=== PATIENT | male | born 1945 | race Caucasian/White ===

== ENCOUNTER → 2017-07-01 14:53 | Outpatient (CLI) | payer MEDICARE, SELFPAY ==
--- NOTE | 2017-07-01 10:00 | LIP_PTH ---
PATIENT: FELICIANO BAEZ LOC: [facility] U#:[id number] AGE/SX: 79/M ROOM: RE07/01/[address]: Dr. Zane Plascencia MD : [id number] BED: DIS: SPEC #: [id number] RECD: 07/01/17 12:04 STATUS: SHANTEL SAUNDRA #: [id number] YOLY: 07/01/17 10:[address]: Zane Plascencia DEPT: SURGICAL PATHOLOGY RECD BY: Hallie Zamora Good Tissues: Soft tissues, NOS Procedures: Surgery Specimen Level III HEADER OPERATION: Excision of lipoma of abdomen PRE-OP DIAGNOSIS: Abdominal lipoma TISSUE SUBMITTED: Abdominal lipoma MICROSCOPIC DIAGNOSIS Abdominal lipoma: Pieces of mature adipose tissue, consistent with lipoma. SJ:deann 07/02/17 MICROSCOPIC DESCRIPTION Slides are reviewed. GROSS DESCRIPTION Received in fixative is one container labeled with the patient's name and designated lipoma abdomen. The specimen consists of two pieces of yellow adipose tissue measuring in aggregate 2 x 2 x 1 cm. The larger piece is bisected. The entire specimen is submitted in one cassette. / SJ:deann 07/01/17 TC:1 CPT: [id number]
== END ==
PROVIDERS: Visit Provider Surgery
DX: D17.79 Benign lipomatous neoplasm of other sites (principal)
CPT/HCPCS: 88304

== ENCOUNTER → 2019-02-23 09:48 | Outpatient (CLI) | payer MEDICARE, OTHER, SELFPAY ==
[2017-07-01 09:43] VITALS: BMI 36.2
== END ==
PROVIDERS: Family Provider Family Medicine; PCP Family Medicine; Referring Provider Otolaryngology; Visit Provider Otolaryngology
DX: R05 Cough (principal)
CPT/HCPCS: 87070; 87205

== ENCOUNTER → 2020-01-20 09:40 | Outpatient (CLI) | payer MEDICARE, OTHER, SELFPAY ==
--- NOTE | 2020-01-20 09:43 | US_ITS ---
STUDY: ABDOMINAL ULTRASOUND REASON FOR EXAM: Male, 74 years old. RLQ PAIN AND LUQ PAIN TECHNIQUE: Transabdominal ultrasound was performed with real-time and static wilder scale imaging. TECHNICAL QUALITY: Adequate. COMPARISON: None. FINDINGS: Liver: The liver measures 18.3 cm. There is increased echogenicity consistent with fatty infiltration. The bile ducts are within normal limits. There is hepatic color flow. The direction of portal flow is hepatopetal. 2 cysts are seen in the right lobe of the liver. The larger cyst measures 1.8 cm x 1.9 cm x 1.2 cm. Gallbladder: Normal distended gallbladder. The gallbladder wall measures 2.6 mm. There is a negative sonographic Hager''s sign. There is no pericholecystic fluid. There are no gallstones. Common Bile Duct (C.B.D.): The common bile duct measures 3.5 mm. Pancreas: Normal size of the head, body and tail of the pancreas. There is increased echogenicity of the pancreas. There is no demonstrated pancreatic mass or cyst. Spleen: Normal size of the spleen. The spleen measures 11 cm x 4.7 cm x 5.6 cm. Right Kidney: Normal size of the right kidney. The right kidney measures 12.6 cm x 5.4 cm x 4.8 cm. Normal renal cortex. The right cortex measures 1.6 cm. There is a 2.5 cm x 2 cm x 2.7 cm cyst. There is no right hydronephrosis. Left Kidney: Normal size of the left kidney. The left kidney measures 12.2 cm x 5.5 cm x 4.8 cm. Normal renal cortex. The left cortex measures 1.7 cm. There is no demonstrated renal mass or cyst. There is no left hydronephrosis. Aorta: Unremarkable I.V.C.: The IVC is patent. There is no ascites. US/Abdomen Complete IMPRESSION: Borderline hepatomegaly and diffuse fatty infiltration of the liver. 2 cysts are seen in the right lobe of the liver. Right renal cyst. Electronically Signed: Sulaiman Aguilar, at 11:35 EDT , Service support ,
--- NOTE | 2020-01-20 09:50 | RAD_ITS ---
STUDY: X-RAY - LUMBAR SPINE REASON FOR EXAM: Male, 74 years old. Low Back Pain TECHNIQUE: 5 view(s) of the lumbar spine were obtained including oblique views. COMPARISON: None FINDINGS: There is an exaggerated lumbar lordosis. There is no substantial scoliosis. There is a normal alignment of the vertebrae. There is multilevel endplate spondylosis of the lumbar vertebrae. There is multi-level degenerative disc disease with multi-level disc space narrowing. The soft tissue structures are unremarkable. RAD/L/S Spine Min 4 Views IMPRESSION: Degenerative changes of the spine, as detailed above. Electronically Signed: Sulaiman Aguilar, at 13:07 EDT , Service support ,
== END ==
PROVIDERS: PCP Family Medicine; Referring Provider Family Medicine; Visit Provider Family Medicine
DX: R10.12 Left upper quadrant pain (principal); M54.5 Low back pain
CPT/HCPCS: 72110; 76700